=== PATIENT | female | born 1955 | race Caucasian/White ===

== ENCOUNTER 2021-08-27 11:19 | Emergency (ER) | payer MEDICAID, MEDICARE ==
[2021-08-27 11:43] LABS: #Lymphocytes 0.6 thou/uL (1.20-3.40); #Monocytes 0.5 thou/uL (0.11-0.59); #Neutrophils 2.6 thou/uL (1.40-6.50); %Basophils 0.8 % (0.0-1.0); %Eosinophils 0.6 % (0.0-10.0); %Monocytes 13.1 % (0.0-10.0); %Neutrophils 69.6 % (42.0-75.0); Hemoglobin 12.6 g/dL (12.0-16.0); Mean Corpuscular Hemoglobin 31.1 pg (27.0-31.0); Mean Corpuscular Volume 94.1 fL (78.0-98.0); Mean Platelet Volume 6.3 fL (7.4-10.4); Platelet Count 430 thou/uL (130-400); RBC Distribution Width 15.3 % (11.5-14.5); Red Blood Cell (RBC) Count 4.04 mill/uL (4.20-5.40); White Blood Cell (WBC) Count 3.8 thou/uL (4.8-10.8)
[2021-08-27 11:55] LABS: INR-International Normal Ratio 1.1; PTT 26.8 sec (22.9-36.1)
[2021-08-27] MEDS ORDERED: Dexamethasone 10 MG/ML VIAL ONE (12:10)
[2021-08-27 12:27] LABS: ALT (SGPT) 28 U/L (8-55); AST (SGOT) 44 U/L (5-34); Alkaline Phosphatase 208 U/L (40-110); Anion Gap 15 mmol/L (10-20); BUN (Urea Nitrogen) 9 mg/dL (9.8-20.1); Bilirubin, Total 0.5 mg/dL (0.2-1.2); Calc. Creatinine Clearance 0 mL/min (70-130); Calcium 7.7 mg/dL (7.8-10.44); Carbon Dioxide 25 mmol/L (23-31); Chloride 102 mmol/L (98-107); Globulin 2.8 g/dL (2.4-3.5); Glucose 101 mg/dL (80-115); Potassium 3.4 mmol/L (3.5-5.1); Protein, Total 5.8 g/dL (5.8-8.1); Sodium 139 mmol/L (136-145)
[2021-08-27] MEDS ORDERED: Ondansetron PF 4 MG/2 ML Vial ONE (15:07)
== END 2021-08-27 22:56 | disposition short-term general hospital (02) ==
LOC: ERS 11:19
DX: I63.9 Cerebral infarction, unspecified (principal); C79.31 Secondary malignant neoplasm of brain; K21.9 Gastro-esophageal reflux disease without esophagitis; G43.909 Migraine, unspecified, not intractable, without status migrainosus; Z79.899 Other long term (current) drug therapy
CPT/HCPCS: 70450; 70553; 71045; 80053; 84484; 85025; 85610; 85730; 93005; 94760; 96374; J1100; J2405